=== PATIENT | male | born 1995 | race African-American/Black ===

== ENCOUNTER 2024-04-01 17:23 | Emergency (ER) | payer SELFPAY ==
[2024-04-01 18:05] VITALS: BP 152/85; PULSE 86; RESP 16; TEMP 98.1; BMI 41.5
[2024-04-01] MEDS ORDERED: KETOROLAC TROMETHAMINE 30 MG/1 ML VIAL ONE (18:21)
[2024-04-01] MEDS: KETOROLAC TROMETHAMINE 30 MG/1 ML VIAL IM ONE (18:27)
[2024-04-01] MEDS ORDERED: ACETAMINOPHEN 500 MG TABLET (FP) ONE (21:03)
[2024-04-01] MEDS: ACETAMINOPHEN 500 MG TABLET (FP) PO ONE (21:13)
== END 2024-04-01 21:31 | disposition home or self-care (01) ==
LOC: JERFT 17:23
PROC: 3E0133Z Introduction of Anti-inflammatory into Subcutaneous Tissue, Percutaneous Approach (ICD-10-PCS; principal; 2024-04-01)
DX: M25.561 Pain in right knee (principal); M79.661 Pain in right lower leg; M79.89 Other specified soft tissue disorders; W10.9XXA Fall (on) (from) unspecified stairs and steps, initial encounter
CPT/HCPCS: 73562-TC-RT-FY; 73590-TC-RT-FY; 93971-TC; 99284-25